=== PATIENT | male | born 1930 | race Caucasian/White ===

== ENCOUNTER 2016-06-09 17:50 | Emergency (ER) | payer MEDICARE, OTHER ==
--- NOTE | ~2016-06-09 | ER ---
PATIENT'S NAME: FRANCISCO JAVIER TAFOYA [facility] AGE: 85 Y [address] ROOM: [place] [address] LOCATION: [facility] ADMIT DATE: 06/09/2016 ER/Outpatient Report DISCHARGE DATE: 06/09/2016 FAMILY PHYSICIAN: Ramiro Martinez MD ATTENDING PHYSICIAN: Lizzeth Dyson CHIEF COMPLAINT: Difficulty sleeping and some trouble with swallowing. HISTORY OF PRESENT ILLNESS: The patient states that for the last 2 to 3 days, he felt like it is just harder for him to actually swallow a food bolus to take it from the mouth to the throat. He is concerned that he may have had a stroke and he feels like he is having trouble sleeping. This started 1 to 2 days ago. It does not appear to be getting worse. He has no other concerns and states he just does not feel right. There have been no focal findings, no chest pain, no shortness of breath, no headache, no vision changes, no focal weakness, no trouble speaking, or any other concerns. PAST MEDICAL HISTORY: Documented on the record and have been reviewed by me. SOCIAL HISTORY: Documented on the record and have been reviewed by me. MEDICATIONS: Documented on the record and have been reviewed by me. ALLERGIES: DOCUMENTED ON THE RECORD AND HAVE BEEN REVIEWED BY ME. REVIEW OF SYSTEMS: All systems reviewed and negative except as noted in the HPI. PHYSICAL EXAMINATION: VITAL SIGNS: Blood pressure 120/62, pulse is 58, respiratory rate is 16, temperature 98.7, SpO2 is 94% on room air. Pain 0/10. GENERAL: Age-appropriate male in no obvious pain or distress. Resting comfortably on exam table. NEURO: The patient is awake and alert. No obvious asymmetry. Cranial nerves II through XII are intact. No dysarthria. Identifies appropriately and converses appropriately. No pronator drift. No weakness of the flexors or extensors. No weakness in the lower extremities. No difficulty with rapid alternating movements. The patient has no difficulty with past pointing and has no dysmetria. He is able to do pwjl-su-szqf testing without difficulty. PATIENT'S NAME: FRANCISCO JAVIER TAFOYA [facility] AGE: 85 Y [address] ROOM: [place] [address] LOCATION: [facility] ADMIT DATE: 06/09/2016 ER/Outpatient Report DISCHARGE DATE: 06/09/2016 FAMILY PHYSICIAN: Ramiro Martinez MD ATTENDING PHYSICIAN: Lizzeth Dyson No focal deficits appreciated on exam. HEENT: Normocephalic, atraumatic. Eyes are PERRL. Oropharynx is clear. NECK: Supple. Trachea is midline. CHEST: Heart is regular rate and rhythm. No murmurs. LUNGS: Clear to auscultation bilaterally with no rhonchi, wheezes, or rales. ABDOMEN: Soft, nontender, and nondistended. No rebound or guarding. BACK: Normal to inspection and palpation. EXTREMITIES: Warm and well perfused. No edema or erythema. SKIN: Warm, dry, and intact. LABS AND X-RAYS: EKG is sinus rhythm, ventricular rate of 50 to 60, otherwise, normal intervals and axis. No ischemia. CMS is unremarkable other than a GFR of 53 and creatinine of 1.3. Troponin I is below threshold. Free T4 is 1.1, TSH is 0.893. CBC is completely unremarkable. INR is 1.1. Head CT is unremarkable per Radiology. No sinus stroke. IMPRESSION: General malaise. EMERGENCY DEPARTMENT COURSE: The patient was seen and evaluated as above. Presentation not consistent with stroke. No significant metabolic derangements. No thyroid disorder. No evidence of cardiac disease at this present time. He does not need serial troponins based on the duration of symptoms. No indication that he has cardiac ischemia. He was seen and evaluated as above. He does not warrant any imaging based on his current presentation. [facility] and [facility]. Return immediately if worse. The patient expresses understanding and agrees. MD AXEL LEAL/hu /[id number] d: 06/10/1648 t: 06/19/16 0904, OUTPATIENT REPORT
[2016-06-09 19:06] LABS: BASOPHIL % 0.4 %; EOSINOPHIL # 0.1 K/uL (0.0-0.5); EOSINOPHIL % 1.1 %; HEMATOCRIT 40.6 % (33.0-50.0); HEMOGLOBIN 13.3 g/dL (11.0-16.0); IMMATURE GRANULOCYTE % 0.2 %; LYMPHOCYTE # 0.9 K/uL (0.8-4.0); LYMPHOCYTE % 15.3 %; MCH 31.3 pg (27.0-34.0); MCHC 32.8 gm/dL (32.0-36.5); MCV 95.5 fl (83.0-98.0); MONOCYTE # 0.4 K/uL (0.0-1.0); MONOCYTE % 6.5 %; MPV 8.6 fl (9.4-12.4); NEUTROPHIL # (ANC) 4.3 K/uL (1.4-9.0); NEUTROPHIL % 76.5 %; NRBC % 0 /100WBC (0-0.00); PLATELET COUNT 232 K/uL (150-450); RBC 4.25 M/uL (3.50-5.50); RDW-CV 13.2 % (11.9-14.6); WBC 5.7 K/uL (4.0-11.0)
[2016-06-09 19:17] LABS: INR - (THERAPEUTIC) 1.1 (0.9-1.1); PROTIME 11.6 SECONDS (9.6-11.1); PTT 24 SECONDS (25-32)
[2016-06-09 19:26] LABS: ALBUMIN 3.6 gm/dL (3.5-5.0); ALK PHOS 68 IU/L (33-138); ALT 22 IU/L (12-78); ANION GAP 13.1 (10.0-19.0); AST 16 IU/L (10-40); BLOOD UREA NITROGEN 22 mg/dL (6-24); CALCIUM 8.3 mg/dL (8.5-10.5); CHLORIDE 110 mMol/L (96-110); CO2 25 mMol/L (22-32); CREATININE 1.3 mg/dL (0.6-1.3); ESTIMATED GFR (MDRD EQUATION) 53; POTASSIUM 4.1 mMol/L (3.7-5.1); SODIUM 144 mMol/L (135-145); TOTAL PROTEIN 6.5 g/dL (6.0-8.4)
[2016-06-09 19:29] LABS: TOTAL BILIRUBIN 0.9 mg/dL (0.0-1.5)
== END 2016-06-09 19:39 | disposition disaster alternative care site (69) ==
LOC: GMED 17:50
PROVIDERS: Emergency Medicine
DX: R53.81 Other malaise (principal)

== ENCOUNTER 2016-06-15 15:21 | Emergency (ER) | payer MEDICARE, OTHER ==
--- NOTE | ~2016-06-15 | ER ---
PATIENT'S NAME: FRANCISCO JAVIER TAFOYA [facility] AGE: 85 Y [address] ROOM: [place] [address] LOCATION: [facility] ADMIT DATE: 06/15/2016 ER/Outpatient Report DISCHARGE DATE: 06/15/2016 FAMILY PHYSICIAN: Ramiro Martinez MD ATTENDING PHYSICIAN: Harlan Bell Time of Arrival: 1521 hours. Time of Evaluation: 1533 hours. CHIEF COMPLAINT: Unable to sleep. HISTORY OF PRESENT ILLNESS: The patient is an 85-year-old male who presents to the emergency department today with a chief complaint of, "I can't sleep." The patient has been seen and evaluated for this in the past. He reports that he saw Dr. Martinez and he has been adjusting his medications. He did not take his Ambien last night and took melatonin instead. He reports that today at about 1 o'clock, he was tired and he laid down, but he was unable to sleep. He became concerned and came in for further evaluation. The patient does take tramadol and Seroquel as well. The patient denies any other symptoms. No fevers or chills. No nausea or vomiting. No diarrhea or constipation. No chest pain. No shortness of breath. Has no other concerns at this time. He is unsure on the dose of the melatonin that he took. PAST MEDICAL HISTORY: 1. Hypertension. 2. Insomnia. PAST SURGICAL HISTORY: Hernia repair. SOCIAL HISTORY: The patient denies any tobacco, alcohol, or illicit drug use. ALLERGIES: NO KNOWN DRUG ALLERGIES. MEDICATIONS: Please see list. PRIMARY CARE DOCTOR: Ramiro Martinez MD REVIEW OF SYSTEMS: PATIENT'S NAME: FRANCISCO JAVIER TAFOYA [facility] AGE: 85 Y [address] ROOM: [place] [address] LOCATION: [facility] ADMIT DATE: 06/15/2016 ER/Outpatient Report DISCHARGE DATE: 06/15/2016 FAMILY PHYSICIAN: Ramiro Martinez MD ATTENDING PHYSICIAN: Harlan Bell All systems are reviewed by myself and are negative with the exception of those discussed in the HPI and past medical history. PHYSICAL EXAMINATION: VITAL SIGNS: Weight 69.6 kg, blood pressure 120/58, pulse 103, respiratory rate 16, temperature 97.0, and oxygen saturation 96% on room air. GENERAL: The patient is an 85-year-old male, who appears his stated age, in no acute distress at this time. HEENT: Normocephalic and atraumatic. Pupils are equal, round, and reactive to light and accommodation. Extraocular motions are intact. NECK: Supple. There is no nuchal rigidity. CARDIOVASCULAR: Regular rate and rhythm. No murmurs, rubs, or gallops. LUNGS: Clear to auscultation bilaterally. No wheezes, rales, or rhonchi. ABDOMEN: Soft, nontender, and nondistended. No rebound, rigidity, or guarding. MUSCULOSKELETAL: The patient moves all 4 extremities. Ambulates with steady gait. SKIN: Warm and dry. There are no rashes or lesions noted. LABORATORY DATA AND IMAGING STUDIES: Labs and X-rays: None. IMPRESSION: 1. Insomnia. 2. Initial visit. EMERGENCY DEPARTMENT COURSE: The patient was brought back to the examination room. Seen and evaluated by myself. History and physical performed by myself. The patient is having medication adjustments and trying to attempt to improve his sleep apnea. I have discussed good sleep apnea so I have discussed physical activity. I have recommended only taking 3 mg of melatonin and adjusting up as needed. I have discussed I would like him to follow up with Dr. Martinez in 2 days for re- evaluation. I have discussed return to care instructions including worsening symptoms or any other concerns to return to the emergency department as soon as possible. The patient is agreeable without further questions at this time. DISPOSITION: The patient was discharged to home in good condition. HARLAN BELL DO PATIENT'S NAME: FRANCISCO JAVIER TAFOYA [facility] AGE: 85 Y [address] ROOM: [place], [place] [address] LOCATION: ED ADMIT DATE: 06/15/2016 ER/Outpatient Report DISCHARGE DATE: 06/15/2016 FAMILY PHYSICIAN: Ramiro Martinez MD ATTENDING PHYSICIAN: Harlan Bell/hu /[id number] d: 06/15/16 1726 t: 06/16/16 0913, OUTPATIENT REPORT
== END 2016-06-15 15:48 | disposition disaster alternative care site (69) ==
LOC: GMED 15:21
DX: G47.00 Insomnia, unspecified (principal); I10 Essential (primary) hypertension

== ENCOUNTER 2016-06-29 22:44 | Emergency (ER) | payer MEDICARE, OTHER ==
--- NOTE | ~2016-06-29 | ER ---
PATIENT'S NAME: FRANCISCO JAVIER TAFOYA [facility] AGE: 85 Y [address] ROOM: [place] [address] LOCATION: [facility] ADMIT DATE: 06/29/2016 ER/Outpatient Report DISCHARGE DATE: 06/29/2016 FAMILY PHYSICIAN: Ramiro Martinez MD ATTENDING PHYSICIAN: Kevin Bell TIME OF ARRIVAL: 2244 hours. TIME OF EVALUATION: 2247 hours. CHIEF COMPLAINT: Unable to sleep. HISTORY OF PRESENT ILLNESS: The patient is an 85-year-old male very familiar to the emergency department who presents to the emergency department with the chief complaint of insomnia. He has been seen and evaluated here in the emergency department multiple times for these same symptoms. He reports he took some of his previous sleeping pills tonight and has not been able to sleep, he is having difficulty sleeping over the past 2 days. He has been seeing Dr. Martinez and has had a long history of difficulties finding the appropriate medication and sleep hygiene in order to allow him to get a good sleep. He denies any fevers or chills. No nausea or vomiting. No diarrhea or constipation. No abdominal pain. No chest pain. No shortness of breath. The patient also does report he is having some blood from his penis and it is a small amount. PAST MEDICAL HISTORY: Insomnia, hypertension, AFib, gastroesophageal reflux disease, depression, and BPH. PAST SURGICAL HISTORY: Hernia repair. SOCIAL HISTORY: The patient lives by himself. Denies any tobacco, alcohol, or illicit drug use. ALLERGIES: PENICILLIN, LISINOPRIL. MEDICATIONS: Please see list. PATIENT'S NAME: FRANCISCO JAVIER TAFOYA [facility] AGE: 85 Y [address] ROOM: [place], [place] [address] LOCATION: [facility] ADMIT DATE: 06/29/2016 ER/Outpatient Report DISCHARGE DATE: 06/29/2016 FAMILY PHYSICIAN: Ramiro Martinez MD ATTENDING PHYSICIAN: Kevin Bell REVIEW OF SYSTEMS: All systems reviewed by myself are negative with the exception of those discussed in HPI and past medical history. PHYSICAL EXAMINATION: VITAL SIGNS: Weight 68.2 kg, blood pressure 164/83, pulse 100, respiratory rate 16, temperature 96.9, and oxygen saturation 96% on room air. GENERAL: The patient is an 85-year-old male who appears of stated age in no acute distress. HEENT: Normocephalic, atraumatic. Pupils are equal, round, and reactive to light and accommodation. Extraocular motions are intact. Nares are patent bilaterally. TMs are clear. Oropharynx is clear. NECK: Supple. No nuchal rigidity. CARDIOVASCULAR: Regular rate and rhythm. No murmurs, rubs, or gallops. LUNGS: Clear to auscultation bilaterally. No wheezes, rales, or rhonchi. ABDOMEN: Soft, nontender, and nondistended. No rebound, rigidity, or guarding. MUSCULOSKELETAL: The patient moves all 4 extremities. SKIN: Warm, dry. There are no rashes or lesions noted. LABS AND X-RAYS: Labs and x-rays are obtained. CBC is unremarkable. CMP is unremarkable. LFTs are unremarkable. Urinalysis shows 150 blood, 10-20 rbcs, 2-5 epithelials, negative. IMPRESSION: 1. Insomnia. 2. Hematuria. 3. Initial visit. EMERGENCY DEPARTMENT COURSE: The patient brought back to the examination room. Seen and evaluated by myself. Laboratory analysis is obtained as described above. The patient also report he had blood in his stool 2 days ago. He did see [facility] at that time. He has not had any blood in his stool since that time. I did discuss the results with the patient. I have recommended that he follow up with Urology and he is to call for an appointment as soon as he can get in for evaluation of his bladder with the hematuria. I have also recommended following up with Dr. Martinez in 2 days for reevaluation of the insomnia. I have written a prescription for Ativan 0.5 mg p.o. q.8 h. p.r.n. sleep, dispensing #3. I have discussed vpzahs-fu-ptti instructions including worsening symptoms, chest pain, shortness of breath, weakness, or any other concerns to return to the emergency department as soon as possible. The patient is agreeable and is without further questions at this time. PATIENT'S NAME: FRANCISCO JAVIER TAFOYA [facility] AGE: 85 Y [address] ROOM: [place] [address] LOCATION: [facility] ADMIT DATE: 06/29/2016 ER/Outpatient Report DISCHARGE DATE: 06/29/2016 FAMILY PHYSICIAN: Ramiro Martinez MD ATTENDING PHYSICIAN: Kevin Bell DISPOSITION: The patient is discharged home in good condition. DO LEONEL LIAO/hu /[id number] d: 06/30/16 0119 t: 06/30/16 1837, OUTPATIENT REPORT
[2016-06-29 23:16] LABS: BASOPHIL % 0.4 %; EOSINOPHIL # 0.1 K/uL (0.0-0.5); EOSINOPHIL % 2.1 %; HEMATOCRIT 40.9 % (33.0-50.0); HEMOGLOBIN 13.8 g/dL (11.0-16.0); IMMATURE GRANULOCYTE % 0.1 %; LYMPHOCYTE # 1.3 K/uL (0.8-4.0); LYMPHOCYTE % 18.7 %; MCH 31.9 pg (27.0-34.0); MCHC 33.7 gm/dL (32.0-36.5); MCV 94.5 fl (83.0-98.0); MONOCYTE # 0.4 K/uL (0.0-1.0); MONOCYTE % 6.1 %; MPV 8.3 fl (9.4-12.4); NEUTROPHIL # (ANC) 4.9 K/uL (1.4-9.0); NEUTROPHIL % 72.6 %; NRBC % 0 /100WBC (0-0.00); PLATELET COUNT 224 K/uL (150-450); RBC 4.33 M/uL (3.50-5.50); RDW-CV 13.2 % (11.9-14.6); WBC 6.7 K/uL (4.0-11.0)
[2016-06-29 23:19] LABS: BILIRUBIN URINE NEGATIVE (NEGATIVE); BLOOD URINE 150 /UL (NEGATIVE); GLUCOSE URINE NEGATIVE (NEGATIVE); KETONE URINE NEGATIVE (NEGATIVE); LEUKOCYTES URINE NEGATIVE /UL (NEGATIVE); NITRITE URINE NEGATIVE (NEGATIVE); PROTEIN URINE NEGATIVE (NEGATIVE); SPEC GRAVITY URINE 1.005 (1.003-1.035); UROBILINOGEN URINE NORMAL (NORMAL)
[2016-06-29 23:20] LABS: COLOR URINE YELLOW (YELLOW); TURBIDITY URINE CLEAR (CLEAR)
[2016-06-29 23:27] LABS: BACTERIA URINE NEGATIVE (NEGATIVE); WBC URINE NEGATIVE #/HPF (NEGATIVE)
[2016-06-29 23:34] LABS: ALBUMIN 3.8 gm/dL (3.5-5.0); CALCIUM 8.5 mg/dL (8.5-10.5); CREATININE 1.3 mg/dL (0.6-1.3); TOTAL PROTEIN 6.7 g/dL (6.0-8.4)
[2016-06-29 23:35] LABS: TOTAL BILIRUBIN 0.6 mg/dL (0.0-1.5)
== END 2016-06-29 23:54 | disposition disaster alternative care site (69) ==
LOC: GMED 22:44
PROVIDERS: Emergency Medicine
DX: G47.00 Insomnia, unspecified (principal); R31.9 Hematuria, unspecified; I10 Essential (primary) hypertension; I48.91 Unspecified atrial fibrillation; K21.9 Gastro-esophageal reflux disease without esophagitis; F32.9 Major depressive disorder, single episode, unspecified; N40.0 Benign prostatic hyperplasia without lower urinary tract symptoms; Z88.2 Allergy status to sulfonamides; Z88.8 Allergy status to other drugs, medicaments and biological substances; Z98.890 Other specified postprocedural states

== ENCOUNTER 2016-07-03 20:17 | Emergency (ER) | payer MEDICARE, OTHER ==
--- NOTE | ~2016-07-03 | ER ---
PATIENT'S NAME: FRANCISCO JAVIER TAFOYA [facility] AGE: 85 Y [address] ROOM: [place] [id number] LOCATION: [facility] ADMIT DATE: 07/03/2016 ER/Outpatient Report DISCHARGE DATE: 07/03/2016 FAMILY PHYSICIAN: Ramiro Martinez MD ATTENDING PHYSICIAN: Mehul Vinson Time of Patient's Arrival: 2017 hours. Time of Patient's Evaluation: 2054. CHIEF COMPLAINT: Unable to sleep. HISTORY OF PRESENT ILLNESS: This is an 85-year-old male who presents to the ER. He states he is having troubles with insomnia. He states he has been dealing with insomnia for several years. He states initially he was on Ambien for several years and then he did not get those medications refilled and he states he has followed up with his primary care physician. I told him to try melatonin which he states does not help him. The patient was evaluated here in the emergency room a few days ago and he was given a prescription for Ativan and which he states also does not help him. He denies any recent illness. No fever or chills. No other problems at this time. ALLERGIES: NO KNOWN ALLERGIES. MEDICATIONS: Please see medication list in nurse's notes. PAST MEDICAL HISTORY: 1. BPH. 2. Acid reflux. 3. Heart disease. 4. Hypertension. SOCIAL HISTORY: Denies smoking, drug, or alcohol use. REVIEW OF SYSTEMS: A 10-point review of systems was completed and was negative with the exception of those discussed in the HPI. PHYSICAL EXAMINATION: VITAL SIGNS: Height 5 feet 3 inches stated, weight 67.9 kg taken, blood pressure is 122/77, pulse 68, respirations 16, temperature 97 degrees [facility] AGE: 85 Y [address] ROOM: [place], [place] [address] LOCATION: [facility] ADMIT DATE: 07/03/2016 ER/Outpatient Report DISCHARGE DATE: 07/03/2016 FAMILY PHYSICIAN: Ramiro Martinez MD ATTENDING PHYSICIAN: Mehul Vinson tympanically, and saturations 95% on room air. Lorne Coma Score is 15. GENERAL: Alert, calm, well-developed male, in no acute distress. HEENT: Head: Normocephalic. Eyes: Pupils are equal and reactive to light. He does display moist mucous membranes. LUNGS: Clear to auscultation bilaterally. No wheeze or crackles. Normal respiratory effort. HEART: Regular rate and rhythm. No lifts, thrills, or murmurs. EXTREMITIES: No clubbing, cyanosis, or edema. Full range of motion of all limbs. LABORATORY DATA AND X-RAYS: None were done. IMPRESSION: Insomnia. ASSESSMENT AND PLAN: Discussed the patient's care with Dr. Vinson. We are going to give him a few Ambien to use for the next few days until he can be seen by his primary care physician. The patient may need a sleep study or further evaluation on his insomnia. The patient understands and agrees with care. LAILA AMRTINEZ PA-C FOR MD NICOLE BENITEZ/hu /[id number] d: t: 07/06/16 1322, OUTPATIENT REPORT
== END 2016-07-03 21:25 | disposition disaster alternative care site (69) ==
LOC: GMED 20:17
DX: G47.00 Insomnia, unspecified (principal); I10 Essential (primary) hypertension; K21.9 Gastro-esophageal reflux disease without esophagitis; Z79.899 Other long term (current) drug therapy

== ENCOUNTER 2016-07-06 12:20 | Emergency (ER) | payer MEDICARE, OTHER ==
--- NOTE | ~2016-07-06 | ER ---
PATIENT'S NAME: FRANCISCO JAVIER TAFOYA [facility] AGE: 85 Y [address] ROOM: [place] [address] LOCATION: ED ADMIT DATE: 07/06/2016 ER/Outpatient Report DISCHARGE DATE: 07/06/2016 FAMILY PHYSICIAN: Ramiro Martinez MD ATTENDING PHYSICIAN: Memo Nixon Time of patient arrival: 1220 hours. Time of patient evaluation: 1234 hours. CHIEF COMPLAINT: Constipation for four days. HISTORY OF PRESENT ILLNESS: This is an 85-year-old male, who presents to the ER. He states he does not believe that he has had a bowel movement in the last 4 days. The patient states that he was recently here for insomnia, and we did give him some medication for that here in the emergency room. He states that is better, but now he states he has not been able to poop. He states he has had no fever, no cough, no shortness of breath, no vomiting. He just states that he has generalized abdominal pain in the upper abdomen and occasionally some in the lower abdomen on the left side. He states he has had no troubles with urination. He states he has not followed up with Dr. Martinez lately. He denies any other problems at this time. ALLERGIES: PLEASE SEE MEDICATION LIST IN NURSE'S NOTES. MEDICATIONS: Please see medication list in nurse's notes. PAST MEDICAL HISTORY: Hypertension. PAST SURGERIES: Appendectomy and hernia repair. SOCIAL HISTORY: He denies smoking, drug, or alcohol use. REVIEW OF SYSTEMS: A 10-point review of system was completed and was negative with the exception of those discussed in the HPI. PHYSICAL EXAMINATION: PATIENT'S NAME: FRANCISCO JAVIER TAFOYA [facility] AGE: 85 Y [address] ROOM: [place] [address] LOCATION: ED ADMIT DATE: 07/06/2016 ER/Outpatient Report DISCHARGE DATE: 07/06/2016 FAMILY PHYSICIAN: Ramiro Martinez MD ATTENDING PHYSICIAN: Memo Nixon VITAL SIGNS: Weight 66.3 kg taken, blood pressure is 101/54, pulse 78, respirations 20, temperature 96.4 degrees tympanically, saturations 95% on room air. Sanford Coma score is 15. GENERAL: Alert, calm, well-developed 85-year-old, in no acute distress. HEENT. Head: Normocephalic. Eyes: Pupils are equal and reactive to light. He does display moist mucous membranes. LUNGS: Clear to auscultation bilaterally. No wheezes or crackles. Normal respiratory effort. HEART: Regular rate and rhythm. No lifts, thrills, or murmurs. ABDOMEN: Soft. He has good bowel sounds throughout. He has mild generalized tenderness in all 4 quadrants, more on the left lower quadrant. He has good bowel sounds throughout. No masses are palpated. He has no guarding, no rebound tenderness. EXTREMITIES: No clubbing or cyanosis. He does have full range of motion of all limbs. LABORATORY DATA: CBC: White count is 6.3, hemoglobin is 14.1, platelets 247, ANC is 5.0. CMS: Glucose is 159, creatinine is 1.6, BUN is 18, estimated GFR is 41, TSH is 0.931, amylase 69, lipase is 177. Three-way abdominal x-ray shows constipation. No perforation or obstruction was seen. IMPRESSION: 1. Constipation. 2. renal insufficiency. ASSESSMENT AND PLAN: Discussed patient with Dr. Nixon. We did start an IV and did give him some IV fluids while he was here. He did rest comfortably his entire stay. The patient states that he would like to go home at this time, so we will send him home with a bottle of magnesium citrate that he needs to drink half of it when he gets home. He needs to push fluids, monitor his symptoms. If he does not have results with this, he may repeat the other half or he needs to see his primary care physician on Friday for followup care. The patient understands and agrees with care. LAILA MARTINEZ PA-C FOR MD NICOLE LEAL/hu PATIENT'S NAME: FRANCISCO JAVIER TAFOYA [facility] AGE: 85 Y [address] ROOM: [place] [address] LOCATION: ED ADMIT DATE: 07/06/2016 ER/Outpatient Report DISCHARGE DATE: 07/06/2016 FAMILY PHYSICIAN: Ramiro Martinez MD ATTENDING PHYSICIAN: Memo Nixon /[id number] d: 07/06/162042 t: 07/09/162232, OUTPATIENT REPORT
[2016-07-06 12:59] LABS: BASOPHIL % 0.5 %; EOSINOPHIL # 0.1 K/uL (0.0-0.5); EOSINOPHIL % 0.8 %; HEMOGLOBIN 14.1 g/dL (11.0-16.0); IMMATURE GRANULOCYTE % 0.2 %; LYMPHOCYTE # 0.8 K/uL (0.8-4.0); LYMPHOCYTE % 11.9 %; MCH 31.8 pg (27.0-34.0); MCHC 33.6 gm/dL (32.0-36.5); MCV 94.8 fl (83.0-98.0); MONOCYTE # 0.4 K/uL (0.0-1.0); MONOCYTE % 6.7 %; MPV 8.4 fl (9.4-12.4); NEUTROPHIL % 79.9 %; NRBC % 0 /100WBC (0-0.00); PLATELET COUNT 247 K/uL (150-450); RBC 4.43 M/uL (3.50-5.50); RDW-CV 13.2 % (11.9-14.6); WBC 6.3 K/uL (4.0-11.0)
[2016-07-06 13:24] LABS: ALBUMIN 3.7 gm/dL (3.5-5.0); CALCIUM 8.6 mg/dL (8.5-10.5); CREATININE 1.6 mg/dL (0.6-1.3); TOTAL PROTEIN 6.8 g/dL (6.0-8.4)
[2016-07-06 13:26] LABS: TOTAL BILIRUBIN 0.9 mg/dL (0.0-1.5)
== END 2016-07-06 14:35 | disposition disaster alternative care site (69) ==
LOC: GMED 12:20
PROVIDERS: Emergency Medicine
DX: K59.00 Constipation, unspecified (principal); N28.9 Disorder of kidney and ureter, unspecified; I10 Essential (primary) hypertension; Z79.899 Other long term (current) drug therapy
CPT/HCPCS: J7030

== ENCOUNTER 2016-08-12 13:59 | Emergency (ER) | payer MEDICARE, OTHER ==
--- NOTE | ~2016-08-12 | ER ---
PATIENT'S NAME: FRANCISCO JAVIER TAFOYA [facility] AGE: 85 Y [address] ROOM: [place] [address] LOCATION: [facility] ADMIT DATE: 08/12/2016 ER/Outpatient Report DISCHARGE DATE: 08/12/2016 FAMILY PHYSICIAN: Ramiro Martinez MD ATTENDING PHYSICIAN: Kevin Bell Time of Arrival: 1421 hours. Time of Exam: 1421 hours. CHIEF COMPLAINT: Eyebrow laceration. HISTORY OF PRESENT ILLNESS: The patient states just prior to arrival he missed a step on his porch fell and landed on his face, against the concrete and has a laceration to the left eyebrow. He denies having any loss of consciousness. He is not feeling dizzy or lightheaded prior to the episode, just misstepped he states. ALLERGIES: PENICILLIN. CURRENT MEDICATIONS: On his chart and reviewed by me. PAST MEDICAL HISTORY: Hypertension. PAST SURGICAL HISTORY: Appendectomy and hernia repair. SOCIAL HISTORY: Denies use of tobacco, drugs, or alcohol. REVIEW OF SYSTEMS: All negative other than those mentioned in the HPI. IMMUNIZATIONS: He states that his tetanus is current. PHYSICAL EXAMINATION: VITAL SIGNS: Blood pressure is 120/61, pulses 65, respirations 16, temperature of 97.1, and O2 saturation is 97% on room air. GENERAL: He is awake, alert, and oriented x4. SKIN: [place]etr[place], warm, and dry. RESPIRATIONS: Even and nonlabored. PATIENT'S NAME: FRANCISCO JAVIER TAFOYA [facility] AGE: 85 Y [address] ROOM: [place] [address] LOCATION: [facility] ADMIT DATE: 08/12/2016 ER/Outpatient Report DISCHARGE DATE: 08/12/2016 FAMILY PHYSICIAN: Ramiro Martinez MD ATTENDING PHYSICIAN: Kevin Bell HEENT: Pupils are equal and reactive to light. Extraocular movement is intact. The patient has a 2 cm laceration to the left eyebrow. NECK: Supple. No lymphadenopathy. LUNGS: Lung sounds are clear throughout. HEART: Regular rate and rhythm. He walked in with a steady even gait. EMERGENCY DEPARTMENT COURSE: CT of the head was completed. Radiologist reports no acute processes. Laceration was cleansed with saline and Betadine, anesthetized with lidocaine with epinephrine. The area was further cleaned with saline. It was closed with 5-0 Ethilon x5 stitches. The patient tolerated the procedure well. Denies being dizzy or lightheaded afterwards. IMPRESSION: Laceration due to fall. PLAN: Home, rest. Fluids. Tylenol or ibuprofen for fever or discomfort. He is to follow up with his primary provider in 2 to 3 days as needed. Otherwise suture removal in 5 to 7 days. He verbalized understanding. RADHA PADRON APRN FOR DO JORGE LIAO/hu /[id number] d: 08/12/16 1842 t: 08/15/16 1314, OUTPATIENT REPORT
== END 2016-08-12 15:07 | disposition disaster alternative care site (69) ==
LOC: GACC 13:59
PROC: 0HQ1XZZ Repair Face Skin, External Approach (ICD-10-PCS; principal; 2016-08-12)
DX: S01.112A Laceration without foreign body of left eyelid and periocular area, initial encounter (principal); I10 Essential (primary) hypertension; Z88.0 Allergy status to penicillin; Z90.49 Acquired absence of other specified parts of digestive tract; W10.8XXA Fall (on) (from) other stairs and steps, initial encounter; Y92.098 Other place in other non-institutional residence as the place of occurrence of the external cause